=== PATIENT | female | born 1980 | race Caucasian/White ===

== ENCOUNTER 2016-09-02 01:50 | Emergency (ER) | payer BC ==
[~2016-09-02] VITALS: Ht 167.6 cm; Wt 72.6 kg
--- NOTE | 2016-09-02 02:10 | NUR ---
To bed 1 a 36 yo female bibself with c/o of midupper back pain radiating to front for 3 days, worse today with pain score of 10/10. Patient seen moaning, restless due to pain, and denies any injury or trauma to site. Comfort measures rendered. Gowned. audit manager at bedside. Awaiting for er md spencer.
[2016-09-02] MEDS ORDERED: DEXAMETHASONE SOD PHOSPHATE 10 MG/ML VIAL ONE (02:17)
[2016-09-02] MEDS ORDERED: CARISOPRODOL 350 MG TABLET ONE (02:17)
[2016-09-02] MEDS ORDERED: HYDROMORPHONE 1 MG/1 ML DISP.SYRIN ONE (02:18)
--- NOTE | 2016-09-02 02:20 | NUR ---
Dr Jain at bedside for eval.
[2016-09-02] MEDS ORDERED: HYDROMORPHONE 1 MG/1 ML DISP.SYRIN IM ONE (02:30)
[2016-09-02] MEDS ORDERED: DEXAMETHASONE SOD PHOSPHATE 4 MG/ML VIAL IM ONE (02:30)
[2016-09-02] MEDS ORDERED: CARISOPRODOL 350 MG TABLET PO ONE (02:30)
--- NOTE | 2016-09-02 02:30 | NUR ---
Medicated patient as ordered by Dr Jain.
--- NOTE | 2016-09-02 04:25 | NUR ---
Patient discharged to home in stable condition. Written and verbal after care instructions given. Patient verbalizes understanding of instruction. Patient is ambulatory with a steady gait.
[2016-09-02 04:26] VITALS: BP 110/83
== END 2016-09-02 04:26 | disposition home or self-care (01) ==
LOC: IVT 01:54 → ER 04:26
DX: S29.012A Strain of muscle and tendon of back wall of thorax, initial encounter (principal); X58.XXXA Exposure to other specified factors, initial encounter; Y93.89 Activity, other specified; Y92.89 Other specified places as the place of occurrence of the external cause; Y99.8 Other external cause status
CPT/HCPCS: 72074-TC; A4606; J1100; J1170; Z7610